=== PATIENT | female | born 2000 | race Caucasian/White ===

== ENCOUNTER 2021-07-12 13:04 | Emergency (ER) | payer OTHER, SELFPAY ==
[2021-07-12 13:15] VITALS: BP 116/71; PULSE 60; RESP 16; TEMP 36.7; O2SAT 100
--- NOTE | 2021-07-12 13:42 | ED.FEMALEGU ---
HPI - Female Genitourinary General Chief complaint: Urogenital-Female Stated complaint: Female Genitalia History of Present Illness HPI Narrative: This is a 21-year-old comes in complaining of herpes-like symptoms. According to patient she has been diagnosed in the past with herpes and has had outbreaks at this time she is having herpes-like lesions on her vaginal lips and in her groin area has been going on for approximately 2 days Related Data Home Medications Medication Instructions Recorded Confirmed escitalopram oxalate 10 mg PO DAILY 07/12/21 07/12/21 spironolactone 50 mg PO DAILY 07/12/21 07/12/21 Allergies Allergy/AdvReac Type Severity Reaction Status Date / Time No Known Allergies Allergy Verified 07/12/21 13:20 Review of Systems Review of Systems: CONSTITUTIONAL: Denies fever, chills, or sweats. EYES: Denies visual changes, redness, or discharge. ENT: Denies rhinorrhea, congestion, sore throat, or otalgia. CARDIOVASCULAR:Denies chest pain, palpitations, or edema. RESPIRATORY: Denies cough or dyspnea. GASTROINTESTINAL: Denies abdominal pain, nausea, vomiting, or diarrhea. GENITOURINARY: Reports dysuria or hematuria. Open lesions and sores SKIN:[Denies rash or itching. MUSCULOSKELETAL:Denies back pain, joint pain, or myalgia. NEUROLOGIC: Denies headache, numbness, or weakness. PSYCHIATRIC:Denies anxiety or depression [facility] Family History Family History (Updated 07/06/14 @ 07:13 by DOCTOR UNKNOWN) Sibling Asthma Social History Social History Smoking status: Never smoker Gender identity (if verbalized by the patient): Female Comments At time as signature, I have reviewed and agree with nursing past medical, social, surgical and family history. Please see nursing chart for further information. There is no relevant family history pertinent to the presenting complaint. Exam Narrative: GENERAL:Well-appearing, well-nourished, and in no acute distress. HEAD:Normocephalic EYES: PERRLA ENT: Nares clear, no rhinorrhea or epistaxis. Mucous membranes moist. CHEST: Clear to auscultation. No respiratory distress. HEART: Regular rate and rhythm. Normal peripheral pulses. ABDOMEN: Soft, nontender, nondistended, normal active bowel sounds. EXTREMITIES: Normal range of motion. No edema. Lesions on the groin area and vaginal lip SKIN: Warm, dry, no rash. NEURO: No focal deficits. Alert and oriented x3. Course Vital Signs Vital signs: Vital Signs Temperature 98.1 F 07/12/21 13:15 Pulse Rate 60 07/12/21 13:15 Respiratory Rate 16 07/12/21 13:15 Blood Pressure 116/71 07/12/21 13:15 Pulse Oximetry 100 07/12/21 13:15 Temperature 98.1 F 07/12/21 13:15 Pulse Rate 60 07/12/21 13:15 Respiratory Rate 16 07/12/21 13:15 Blood Pressure 116/71 07/12/21 13:15 Pulse Oximetry 100 07/12/21 13:15 MDM - Female Genitourinary Differential Diagnosis Differential diagnosis: Likely urinary tract infection, bacterial vaginosis, trichomoniasis, cystitis and other (Herpes) Discharge Plan Discharge Clinical Impression: Herpes genitalis in women Patient Disposition: Home, Self-Care Condition: Stable Instructions: Antibiotic Form, Genital Herpes Simplex (ED) Additional Instructions: Use condoms. Use a latex condom when you have oral, genital, and anal sex. Use a new condom each time. Use a polyurethane condom if you are allergic to latex. Try not to touch your blisters. Wash your hands before and after you touch the area. Do not kiss anyone if you have blisters around your mouth. Do not breastfeed if you have blisters on your breast. Prescriptions: New valacyclovir 500 mg tablet 1,000 mg PO Q12H 10 Days Qty: 40 RF: 1 No Action spironolactone 50 mg tablet 50 mg PO DAILY RF: 0 escitalopram oxalate 10 mg tablet 10 mg PO DAILY RF: 0 Follow-up/Referrals: Brenda,KIKE Sharma-BC [Primary Care Provider] - Time of Disposition: 13:47
== END 2021-07-12 13:50 | disposition home or self-care (01) ==
PROVIDERS: Emergency Provider Nurse Practitioner Family; PCP Nurse Practitioner Family
DX: A60.00 Herpesviral infection of urogenital system, unspecified (principal)
CPT/HCPCS: 99213; G0463

== ENCOUNTER 2024-03-02 10:02 | Outpatient (CLI) | payer OTHER, SELFPAY ==
--- NOTE | ~2024-03-02 | US_ITS ---
EXAMINATION: US pelvic complete w TV DATE: 03/02/2024 10:33 INDICATION: Pelvic pain. TECHNIQUE: Multiple transabdominal and transvaginal sonographic images of the pelvis were obtained. COMPARISON: None. FINDINGS: TRANSABDOMINAL ULTRASOUND: The uterus measures 4.6 x 2.0 x 3.1 cm. There is no free fluid in the pelvis. TRANSVAGINAL ULTRASOUND: The endometrial complex measures 2 mm in thickness. There is an intrauterine device in expected posit ion. The right ovary measures 2.9 x 2.2 x 3.1 cm. The left ovary measures 2.3 x 2.4 x 2.7 cm. There i s normal vascular flow in the ovaries. IMPRESSION: 1. Intrauterine device in expected position. Reviewed, dictated and finalized at location E.
== END 2024-03-02 10:03 ==
PROVIDERS: PCP Nurse Practitioner; Visit Provider Nurse Practitioner
DX: R10.2 Pelvic and perineal pain (principal); Z97.5 Presence of (intrauterine) contraceptive device
CPT/HCPCS: 76830; 76856